=== PATIENT | male | born 1995 | race African-American/Black ===

== ENCOUNTER 2016-06-13 17:49 | Emergency (ER) | payer OTHER, MEDICAID ==
[2016-06-13 18:49] VITALS: BP 118/78; PULSE 89; RESP 16; TEMP 98.4; O2SAT 100
[2016-06-13 21:12] LABS: AUTOMATED NEUTROPHIL # 5.9 TH/MM3 (1.8-7.7); BASOPHIL % 0.5 % (0.0-2.0); EOSINOPHIL % 0.4 % (0.0-4.0); HEMATOCRIT 46.2 % (39.0-51.0); HEMO FLAGS DIFF FINAL; LYMPH % 15.6 % (9.0-44.0); LYMPHOCYTE # 1.2 TH/MM3 (1.0-4.8); MEAN CELL VOLUME 90.8 FL (80.0-100.0); MEAN CORPUSCULAR HEMOGLOBIN 30.7 PG (27.0-34.0); MEAN CORPUSCULAR HGB CONC 33.8 % (32.0-36.0); MONO % 5.7 % (0.0-8.0); NEUT % 77.8 % (16.0-70.0); PLATELET COUNT 175 TH/MM3 (150-450); RED BLOOD COUNT 5.09 MIL/MM3 (4.50-5.90); RED CELL DISTRIBUTION WIDTH 13.6 % (11.6-17.2); WHITE BLOOD COUNT 7.6 TH/MM3 (4.0-11.0)
--- NOTE | 2016-06-13 21:18 | PD ---
HPI Chief Complaint: Psychiatric Symptoms Time Seen by Provider: 21:15 Travel History International Travel<30 days: No Contact w/Intl Traveler<30days: No Traveled to known affect area: No History of Present Illness HPI 20-year-old male presents to the emergency Department under Con[place]pcion act by local police. The patient states that he got angry over family problems. He states he took a knife and threatened to stab himself. He states that he took it too far. He denies any suicidal or homicidal ideation. He denies breaking the skin. Patient denies any chronic medical problems or take any prescribed medications. He denies any alcohol use. He does say he smokes marijuana occasionally. He has no medical complaints at this time. [facility] Social History Alcohol Use: No Tobacco Use: Yes Substance Use: Yes (marijuana) Allergies-Medications (Allergen,Severity, Reaction): Coded Allergies: No Known Allergies (Unverified , 06/13/16) Reported Meds & Prescriptions Reported Meds & Active Scripts Active No Active Prescriptions or Reported Medications Review of Systems Except as stated in HPI: all other systems reviewed are Neg Physical Exam Narrative GENERAL: Well-nourished, well-developed male patient, ambulatory. Afebrile. SKIN: Focused skin assessment warm/dry. HEAD: Normocephalic. EYES: No scleral icterus. No injection or drainage. NECK: Supple, trachea midline. No JVD or lymphadenopathy. CARDIOVASCULAR: Regular rate and rhythm without murmurs, gallops, or rubs. RESPIRATORY: Breath sounds equal bilaterally. No accessory muscle use. Lungs sounds are clear to auscultation GASTROINTESTINAL: Abdomen soft, non-tender, nondistended. MUSCULOSKELETAL: No cyanosis, or edema. PSYCHIATRIC: No delusional thought processes. No hallucinations. Data Data Last Documented VS Vital Signs Date Time Temp Pulse Resp B/P Pulse Ox O2 Delivery O2 Flow Rate FiO2 06/13/16 18:49 98.4 89 16 118/78 100 Orders Complete Blood Count With Diff (06/13/16 20:19) Comprehensive Metabolic Panel (06/13/16 20:19) Psych Screen (06/13/16 20:19) Drug Screen, Random Urine (06/13/16 20:19) Alcohol (Ethanol) (06/13/16 20:19) Labs Laboratory Tests Test 06/13/16 19:00 White Blood Count 7.6 TH/MM3 Red Blood Count 5.09 MIL/MM3 Hemoglobin 15.6 GM/DL Hematocrit 46.2 % Mean Corpuscular Volume 90.8 FL Mean Corpuscular Hemoglobin 30.7 PG Mean Corpuscular Hemoglobin 33.8 % Concent Red Cell Distribution Width 13.6 % Platelet Count 175 TH/MM3 Mean Platelet Volume 11.0 FL Neutrophils (%) (Auto) 77.8 % Lymphocytes (%) (Auto) 15.6 % Monocytes (%) (Auto) 5.7 % Eosinophils (%) (Auto) 0.4 % Basophils (%) (Auto) 0.5 % Neutrophils # (Auto) 5.9 TH/MM3 Lymphocytes # (Auto) 1.2 TH/MM3 Monocytes # (Auto) 0.4 TH/MM3 Eosinophils # (Auto) 0.0 TH/MM3 Basophils # (Auto) 0.0 TH/MM3 CBC Comment DIFF FINAL Differential Comment Sodium Level 140 MEQ/L Potassium Level 3.9 MEQ/L Chloride Level 103 MEQ/L Carbon Dioxide Level 28.3 MEQ/L Anion Gap 9 MEQ/L Blood Urea Nitrogen 15 MG/DL Creatinine 1.10 MG/DL Estimat Glomerular Filtration 105 ML/MIN Rate Random Glucose 80 MG/DL Calcium Level 9.2 MG/DL Total Bilirubin 0.5 MG/DL Aspartate Amino Transf 19 U/L (AST/SGOT) Alanine Aminotransferase 24 U/L (ALT/SGPT) Alkaline Phosphatase 95 U/L Total Protein 8.1 GM/DL Albumin 4.3 GM/DL Urine Opiates Screen NEG Urine Barbiturates Screen NEG Urine Amphetamines Screen NEG Urine Benzodiazepines Screen NEG Urine Cocaine Screen NEG Urine Cannabinoids Screen POS Ethyl Alcohol Level LESS THAN 3 MG/DL MDM Medical Decision Making Medical Screen Exam Complete: Yes Emergency Medical Condition: Yes Medical Record Reviewed: Yes Differential Diagnosis Depression versus anxiety versus bipolar disorder Narrative Course 20-year-old male presents to the emergency Department under [place]ion act by local police. Patient states he was angry and took it too far, but denies any suicidal or homicidal ideations. CBC, CMP, urine drug screen, alcohol level are ordered and pending. CBC shows no acute abnormality. CMP is unremarkable. Alcohol level is less than 3. UDS is positive for cannabinoids. Patient is medically cleared for psychiatric screening and disposition. Mental health screening discussed with the patient. Psychiatric screen ordered. Diagnosis Primary Impression: Outbursts of anger Additional Instructions: Patient is medically cleared for psychiatric screening and disposition. Scripts No Active Prescriptions or Reported Meds Condition: Jyoti Granda Jun 13, 2016 21:18
[2016-06-13 21:26] LABS: ANION GAP 9 MEQ/L (5-15)
[2016-06-13 21:28] LABS: ALKALINE PHOSPHATASE 95 U/L (45-117); ALT (GPT) 24 U/L (9-52); AST (GOT) 19 U/L (15-39); BICARBONATE 28.3 MEQ/L (21.0-32.0); BLOOD UREA NITROGEN 15 MG/DL (7-18); CHLORIDE 103 MEQ/L (98-107); GLOMERULAR FILTRATION RATE 105 ML/MIN (>89); POTASSIUM 3.9 MEQ/L (3.5-5.1); SODIUM (NA) 140 MEQ/L (136-145); TOTAL BILIRUBIN ADULT 0.5 MG/DL (0.2-1.0)
[2016-06-13 21:32] LABS: AMPHETAMINE, URINE NEG (NEG); BARBITURATES, URINE NEG (NEG); COCAINE, URINE NEG (NEG)
[2016-06-14 08:43] VITALS: BP 127/100; PULSE 80; RESP 18; O2SAT 99
[2016-06-14 13:50] VITALS: BP 137/91; PULSE 74; RESP 20; TEMP 98.5; O2SAT 99
[2016-06-14 15:00] VITALS: BP 137/91; PULSE 106; RESP 20; TEMP 98.5; O2SAT 99
--- NOTE | 2016-06-15 06:41 | MB ---
cc: MARCUS FIELDS DATE OF CONSULTATION 06/14/2016 PHYSICIAN REQUESTING CONSULTATION Emergency Department REASON FOR CONSULTATION Concepcion ACT HISTORY OF PRESENT ILLNESS Mr. Forbes is a 20-year-old -[place] male with no known past psychiatric history who presents under a Concepcion Act from [facility] Department alleging that the patient threatened to kill himself and his girlfriend. He allegedly took a pocket knife and started stabbing himself, but never actually broke the skin per the Concepcion Act. Reviewing our electronic medical record, I see no prior psychiatric contact within our system. The patient seen and examined. Chart reviewed. Case discussed with nurse in the J pod. There has been no evidence of any suicidality or homicidality or any other behavioral disturbance despite 24-hour observation in the emergency department. On my examination today, the patient is calm and cooperative with examination. He appears to be in good spirits. He does admit that he has some trouble with his temper noting "I get mad quick and little things upset me." He says that he had gotten into an argument with his girlfriend, but he adamantly denies threatening her person. He does say that in the context of this argument, he pantomimed stabbing himself with a pocket knife, but denies that there was any suicidal intent in this. He denies any suicidal or homicidal ideation, intent or plan on direct questioning now. He is future oriented with several near and long-term goals. Mood is fair and I can detect no depressive or hypomanic/manic symptoms. He denies any audiovisual hallucinations, and I can elicit no delusional beliefs. The remainder of the psychiatric ROS is negative. The patient is requesting discharge from the psychiatric emergency room this afternoon. PAST SURGICAL HISTORY The patient denies any history of psychiatric diagnosis. He denies any history of inpatient or outpatient psychiatric treatment. He denies any history of psychiatric admissions or any history of suicide attempts. FAMILY HISTORY The patient denies any family history of diagnosed mental illness, substance use disorder or suicide. He does note that several members of his family struggle with anger issues. CHEMICAL DEPENDENCY HISTORY The patient admits to use of cannabis approximately three times a week. His toxicology is positive for cannabinoids. SOCIAL HISTORY The patient denies any history of physical, verbal or sexual abuse. He lives with his grandmother. He is high school educated. He works at [employer] and he notes he just started this job here recently. He denies any or legal history. He is single with no children. He denies any access to guns or firearms. He denies any organized sikh or spiritual beliefs, although he does note that he believes in God. PAST MEDICAL HISTORY No reported medical issues. REVIEW OF SYSTEMS No reported headache, vision or hearing changes, chest pain, shortness of breath, bowel or bladder issues. No other physical complaints. PHYSICAL EXAMINATION VITAL SIGNS: Temperature is 98.5, pulse 106, respirations 20, blood pressure 137/91, pulse oximetry 99% on room air. Physical examination was completed in the emergency room by the ER staff and the patient was medically cleared. On my examination today, the patient appears to be in no acute physical distress. No motor abnormalities noted. LABORATORIES REVIEWED CBC is unremarkable. CMP is unremarkable. Toxicology is positive for cannabinoids and alcohol level was undetectable. MENTAL STATUS EXAM The patient is in hospital gown. He is well-groomed. He is appears to be attending to his basic needs. He is awake and alert and oriented x3. No evidence of delirium. No motor abnormalities noted. Speech is within normal limits for rate, tone and volume. Language and fund of knowledge seem average. Mood is fair and affect is euthymic, full and reactive. Thought process linear. No loosening of associations. No evident delusions. Denies audiovisual hallucinations. Denies suicidal or homicidal ideation, intent or plan. Insight and judgment are fair. ASSESSMENT/PLAN 1. Adjustment disorder with disturbance of emotions and conduct, F43.25 2. Cannabis use, rule out use disorder, F12.90 This is a 20-year-old -[place] male with psychiatric history as detailed above who presents under a Concepcion ACT. The patient apparently made a suicidal gesture in the setting of an argument with his girlfriend. The patient denies that he had any suicidal intent in doing so and denies any suicidal or homicidal ideation at this time. I can detect no unstable mood, anxiety or psychotic disorder in this patient at this time. He appears to be attending to his basic needs. Nursing staff has obtained collateral from the patient's grandmother which I have reviewed. Putting all of this information together and weighing the acute, chronic, and protective factors and based on the available evidence, I warehouse assistant to a reasonable degree of medical certainty that the patient is at low imminent risk of harm to self or others from mental illness as defined under the Concepcion Act and his level of function is adequate for outpatient care. Consequently, the patient does not meet Concepcion Act criteria and I have lifted the Concepcion Act at this time. I have offered the patient voluntary psychiatric hospitalization for management of his anger issues, but he has declined. I have recommended outpatient psychiatric followup and the patient is agreeable to this and we will provide him with the appropriate referrals. The patient is to abstain from substances of abuse. I have counseled the patient regarding warning signs for need to return to the psychiatric emergency room as part of a general safety plan. The patient is otherwise psychiatrically clear for discharge from the ED. Thank you very much for this consultation. Marcus ARREOLA /6:10 PM /6:30 AM [id number]
== END 2016-06-14 18:12 | disposition home or self-care (01) ==
LOC: NEDAMB 17:49 → NEPJ 06-14 18:12
DX: F43.25 Adjustment disorder with mixed disturbance of emotions and conduct (principal); F12.90 Cannabis use, unspecified, uncomplicated
CPT/HCPCS: 80053; 80307; 85025; 99285